=== PATIENT | male | born 2000 | race Caucasian/White ===

== ENCOUNTER 2018-03-29 04:11 | Emergency (ER) | payer BC ==
[~2018-03-29] VITALS: Ht 177.8 cm; Wt 70.3 kg
[2018-03-29 04:14] VITALS: BP_SYST 135
--- NOTE | 2018-03-29 04:14 | NUR ---
Patient to ER bed 8 to gown for evaluation. Side rails up. Report given to JOSUE MILNER.
--- NOTE | 2018-03-29 04:20 | NUR ---
Patient AOx4, ambulatory, presents to ER with complaint of bilateral lower abdominal pain 4/10 x2 days. Patient states he medicated with Imodium for gas/bloating without relief. No other symptoms or complaints. Father at bedside.
--- NOTE | 2018-03-29 04:45 | NUR ---
ER MD Martin at bedside for medical evaluation.
[2018-03-29] MEDS ORDERED: LACTULOSE 20 GM/30 ML UDC PO ONE (05:00)
[2018-03-29 05:04] VITALS: BP_SYST 128
--- NOTE | 2018-03-29 05:04 | NUR ---
Patient given written and verbal discharge instructions and verbalizes understanding. ER MD discussed with patient the results and treatment provided. Patient in stable condition. ID arm band removed. Rx of MiraLax given. Patient educated on pain management and to follow up with PMD. Pain Scale 2/10 tolerable to patient. Opportunity for questions provided and answered. Medication side effect fact sheet provided.
--- NOTE | 2018-03-29 05:04 | NUR ---
No adverse reactions noted after medication administration. Will continue to monitor.
== END 2018-03-29 05:04 | disposition home or self-care (01) ==
LOC: SED 04:11
DX: K59.00 Constipation, unspecified (principal)
CPT/HCPCS: 74018; 99283